=== PATIENT | female | born 1945 | race African-American/Black ===

== ENCOUNTER 2017-06-06 05:24 | Inpatient (IN) | payer OTHER ==
[~2017-06-06] VITALS: Ht 157.5 cm; Wt 70.8 kg
[~2017-06-06 05:24] MED LIST: ACETAMINOPHEN500 M4 PO; AMLODIPINE BESY10 M1 PO; ASPIRIN EC81 M1 PO; ATENOLOL50 M1 PO; CENTRUM SILVER1 EAC3 PO; GLUCOTROL5 M1 PO; LIPITOR10 M1 PO; LISINOPRIL5 M1 PO; METFORMIN HCL500 M3 PO; OMEPRAZOLE40 M1 PO; TRAMADOL HCL50 M1 PO
--- NOTE | 2017-06-06 11:50 | Admission Core Measures ---
Acute Coronary Syndrome (CM) ACS Core Measures Acute Coronary Syndrome Diagnosis No Congestive Heart Failure (NEW) CHF Core Measures Congestive Heart Failure Diagnosis No Cerebrovascular Accident (NEW) CVA Core Measures CVA/TIA Diagnosis No Venous Thromboembolism VTE Core Renetta (View Protocol) VTE Risk Factors Surgery No Mechanical VTE Prophylaxis d/t N/A MechProphylax Ordered No VTE Pharm Prophylaxis d/t NA PharmProphylax ordered Problem List As ranked by this Provider includes Assessment & Plan 1. Unilateral primary osteoarthritis, right knee HOME MEDS Home Med List Acetaminophen 500 MG TABLET 2 TAB PO PRN PAIN (Reported) Amlodipine Besylate 10 MG TABLET 1 TAB PO DAILY BP (Reported) Aspirin (Ecotrin*) 81 MG TABLET.DR 1 TAB PO DAILY HEART/BLOOD (Reported) Atenolol 50 MG TABLET 1 TAB PO DAILY BP (Reported) Atorvastatin Calcium (Lipitor) 10 MG TABLET 1 TAB PO DAILY CHOLESTEROL ( Reported) Glipizide (Glucotrol) 5 MG TABLET 1 TAB PO DAILY DM (Reported) Lisinopril 5 MG TABLET 1 TAB PO DAILY BP (Reported) Metformin HCl 500 MG TABLET 1 TAB PO BID DM (Reported) Multivit-Min/FA/Lycopen/Lutein (Centrum Silver Tablet) 0.4 MG-300 MCG-250 MCG TABLET 1 TAB PO DAILY SUPPLEMENT (Reported) Omeprazole 40 MG CAPSULE.DR 1 CAP PO PRN GI (Reported) Tramadol HCl 50 MG TABLET 1-2 TAB PO Q4-6H PRN PAIN (Reported)
--- NOTE | 2017-06-06 11:51 | Surgical Discharge Summary ---
Visit Information Visit Dates Admission Date: 06/06/17 Discharge Date: 06/10/17 History of Present Illness Chief Complaint: Right knee joint pain Surgical History Pertinent Surgical History: knee replacement (R 06/06/17) Review of Systems: Refer to H&P Hospital Course Course Attending Physician: Munir Hwang MD Primary Care Physician: Coty MEZA,[place] Hospital Course: Patient underwent a R TKR by Dr Hwang and was brought to the PACU in stable condition. Postoperatively, she was evaluated and worked with PT and was WBAT. She voided spontaneously and her pain control was transitioned from iv to oral medicaiton. Her discharge was delayed due to constipation. Multiple medications were used to achieve a bm prior to discharge to short term rehab. Complications: None Allergies: Coded Allergies: erythromycin base (BLACKED OUT PER PT 06/01/17) sitagliptin (From [facility]) (renal failure 06/05/17) Disposition Summary Disposition Principal Diagnosis: Bilateral knee primary DJD Additional Diagnosis: same as above, s/p Surgery Date: 06/06/17 Name of Procedure: 1. Right total knee replacement 2. Left knee cortisone injection Discharge Disposition: SNF Discharge Instructions General Discharge Information Code Status: Full Code Patient's Diet: diabetic diet, cc3 Patient's Activity: weight bearing as tolerated. rolling walker assistance. continue PT. Follow-Up Instructions/Appts: follow up with in 6 weeks staple removal around post-op day#14 dry guaze dressing changed daily, right knee Medications at Discharge Discharge Medications: Stop taking the following medications: Tramadol HCl (Tramadol HCl) 50 MG TABLET ORAL Q4-6H as needed for PAIN Aspirin (Ecotrin*) 81 MG TABLET.DR LIAN CANCHOLA Continue taking these medications: Lisinopril (Lisinopril) 5 MG TABLET 1 Tablet ORAL DAILY Atenolol (Atenolol) 50 MG TABLET 1 Tablet ORAL DAILY Glipizide (Glucotrol) 5 MG TABLET 1 Tablet ORAL DAILY Atorvastatin Calcium (Lipitor) 10 MG TABLET 1 Tablet ORAL DAILY Amlodipine Besylate (Amlodipine Besylate) 10 MG TABLET 1 Tablet ORAL DAILY Metformin HCl (Metformin HCl) 500 MG TABLET 1 Tablet ORAL TWICE DAILY Multivit-Min/FA/Lycopen/Lutein (Centrum Silver Tablet) 0.4 MG-300 MCG-250 MCG TABLET 1 Tablet ORAL DAILY Acetaminophen (Acetaminophen) 500 MG TABLET 2 Tablet ORAL as needed for PAIN Omeprazole (Omeprazole) 40 MG CAPSULE.DR 1 Capsule ORAL as needed for GI Start taking the following new medications: Aspirin (Aspirin*) 325 MG TABLET 1 Tablet ORAL TWICE DAILY Qty = 60 No Refills Docusate Sodium (Colace) 100 MG CAPSULE 1 Capsule ORAL TWICE DAILY Qty = 14 No Refills Hydromorphone HCl (Dilaudid) 2 MG TABLET 1-2 Tablet ORAL EVERY 4-6 HOURS as needed for PAIN Qty = 36 No Refills Polyethylene Glycol 3350 (Miralax) 17 GRAM POWD.PACK 1 Packet ORAL DAILY Qty = 7 No Refills Instructions: dissolve in water Copies To: Coty MEZA,George
--- NOTE | 2017-06-06 12:22 | Patient Discharge Instructions ---
Discharge Instructions General Discharge Information You were seen/treated for: Bilateral knee primary DJD You had these procedures: Surgery Date: 06/06/17 Name of Procedure: 1. Right total knee replacement 2. Left knee cortisone injection Watch for these problems: Temp >101.3 F, increased redness or drainage of wounds Call Surgeon to remove: [place] Other wound care: Keep incisions clean and dry. May shower no bathing or soaking Special Instructions: staple removal around post-op day#14 Diet Continue normal diet: Yes Recommended Diet: Diabetic Activity Activity Self Limited: Yes Activity Limited to: Weight bear as tolerated Acute Coronary Syndrome Inclusion Criteria At DC or during hospital stay patient has or had the following: ACS DIAGNOSIS No Discharge Core Measures Meds if any: Prescribed or Continued at Discharge Meds if any: NOT Prescribed or Continued at Discharge Congestive Heart Failure Inclusion Criteria At DC or during hospital stay patient has or had the following: CHF DIAGNOSIS No Discharge Core Measures Meds if any: Prescribed or Continued at Discharge Meds if any: NOT Prescribed or Continued at Discharge Cerebrovascular accident Inclusion Criteria At DC or during hospital stay patient has or had the following: CVA/TIA Diagnosis No Discharge Core Measures Meds if any: Prescribed or Continued at Discharge Meds if any: NOT Prescribed or Continued at Discharge Venous thromboembolism Inclusion Criteria VTE Diagnosis No VTE Type NONE VTE Confirmed by (Test) NONE Discharge Core Measures - Per Current guidelines, there needs to be overlap - treatment for the first 5 days of Warfarin therapy. - If discharged on Warfarin prior to 5 days of - overlap therapy, the patient will need to be - assessed for post discharge needs including - *Post discharge parental anticoagulation - *Warfarin and/or parental anticoagulation education - *Follow up date to check INR post discharge At least 5 days overlap therapy as Inpatient No Meds if any: Prescribed or Continued at Discharge Note: Overlap Therapy is Warfarin and Anticoagulant Meds if any: NOT Prescribed or Continued at Discharge
[2017-06-06] MEDS ORDERED: COLACE100 M1 PO (12:48)
[2017-06-06] MEDS ORDERED: ASPIRIN325 M2 PO (12:48)
[2017-06-06] MEDS ORDERED: MIRALAX17 G1 PO (12:48)
[2017-06-06] MEDS ORDERED: DILAUDID2 M1 PO (12:48)
--- NOTE | 2017-06-06 13:12 | Operative Report ---
Operative/Inv Procedure Report Surgery Date: 06/06/17 Name of Procedure: 1. Right total knee replacement 2. Left knee cortisone injection Pre-Operative Diagnosis: Bilateral knee primary DJD Post-Operative Diagnosis: Same Estimated Blood Loss: 50ml to 100ml Surgeon/Grief Counselor: Eri MEZA,Munir Ivory Anesthesia: block Operative/Procedure Note Note: Description of Procedure: The patient was taken to the operating room and positively identified. After induction of spinal anesthesia and administration of appropriate pre-operative antibiotics, the patient was positioned supine on the operating room table and all bony prominences were well padded. The left knee was prepped sterilely and injected with a mixture of 2 mL of Depo- Medrol and 6 mL of half percent Marcaine. A Band-Aid was placed over the check site. Attention was then turned to the right lower extremity. A well-padded pneumatic tourniquet was placed on the right upper thigh. After performing a surgical timeout, the right lower extremity was prepped and draped in the usual sterile fashion. After exsanguination with Esmarch the tourniquet was inflated to 250mm of mercury. A standard medial parapatellar approach was made to the knee. This was carried down through skin and subcutaneous tissue to the level of the fascia. Meticulous hemostasis was maintained with Bovie electrocautery. The extensor mechanism and patellar retinaculum were opened sharply and the patella was everted. The infrapatellar fat was resected in order to improve exposure. Osteophytes were trimmed from the patella and femoral condyles and the patella was re-everted and tucked laterally. A medial release was performed and the cruciate ligaments were resected. The tibia was then subluxed anteriorly. Utilizing the appropriate extra-medullary guide, the proximal tibia was trimmed perpendicular to the long axis of the tibial shaft. Attention was then turned to the femur. After opening the medullary canal, the distal femoral cut was made in 6 degrees of valgus utilizing the appropriate intra-medullary guide. The extension gap was checked and found to be appropriate. The femur was then sized and the remainder of the femoral cuts were made with a size 3 4-in-1 femoral cutting guide. The flexion gap was checked and found to be symmetric and appropriate. The knee was then trialed with a size 3 femoral component, a size 3 tibial component and a size 11 mm polyethylene insert. The patella was trimmed to accept an A 32 patella. This yielded excellent range of motion, stability and patellar tracking. All trial components were removed and the knee was copiously irrigated with sterile saline. All components were cemented into place with Chely Simplex cement. All the components were of the [employer] (NIH) Triathlon knee system of the above stated sizes. The knee was again irrigated after cementation. The extensor mechanism and patellar retinaculum were repaired using interrupted #1 vicryl suture. The skin was re-approximated with 2-0 vicryl and closed with antelmo. A sterile dressing was applied, the tourniquet was deflated, the patient was awakened and taken to the recovery room in satisfactory condition.
[2017-06-06 18:30] VITALS: BP 156/80
--- NOTE | 2017-06-06 21:20 | PN- Orthopedic ---
Subjective Subjective: poc - s/p right tka awake alert comfortable denies cp, sob, no n+v with diet Objective Vital Signs and I&Os Vital Signs Date Time Temp Pulse Resp B/P B/P Pulse O2 O2 Flow FiO2 Mean Ox Delivery Rate 06/06 1830 98.7 86 20 156/80 97 Room Air Intake & Output 06/06 1600 06/06 0800 06/06 0000 06/05 1600 06/05 0800 06/05 0000 Intake Total Output Total Balance Patient 156 lb Weight Physical Exam: cv: rrr lungs: clear abd: soft, +bs ext: drsg dry distal cms intact onq in place Assessment/Plan Assessment/Plan ortho stable plan oob with pt in am asa for dvt prophylaxis titrate pain meds dc ivf when irma po wants snf upon d/c Core Measures Venous Thromboembolism VTE Risk Factors Surgery No Mechanical VTE Prophylaxis d/t N/A MechProphylax Ordered No VTE Pharm Prophylaxis d/t NA PharmProphylax ordered
[2017-06-06 22:12] VITALS: BP 156/64
[2017-06-07 02:00] VITALS: BP 130/70
[2017-06-07 06:11] VITALS: BP 140/70
[2017-06-07 08:31] LABS: ABSOLUTE BASOPHIL COUNT 0 /CUMM (0.0-0.2); ABSOLUTE EOSINOPHIL COUNT 0 /CUMM (0.0-0.7); ABSOLUTE GRANULOCYTE CT 6.5 /CUMM (1.4-6.5); ABSOLUTE LYMPH COUNT 1.5 /CUMM (1.2-3.4); ABSOLUTE MONOCYTE COUNT 0.8 /CUMM (0.10-0.60); BASOPHIL % 0.2 % (0.0-2.0); EOSINOPHIL % 0.1 % (0-5); GRANULOCYTE % 73.6 % (42.2-75.2); HEMATOCRIT 26.3 % (37-47); MEAN CORPUSCULAR HGB CONC 32.5 G/DL (33.0-37.0); MEAN CORPUSCULAR VOLUME 73.9 FL (81.0-99.0); MEAN PLATELET VOLUME 7.1 FL (7.4-10.4); PLATELET COUNT 484 /CUMM (130-400); RBC DISTRIBUTION WIDTH 17.6 % (11.5-14.5); RED BLOOD CELL CT 3.56 /CUMM (4.20-5.40); WHITE BLOOD CELL COUNT 8.8 /CUMM (4.8-10.8)
--- NOTE | 2017-06-07 10:14 | PN- Orthopedic ---
Subjective Subjective: Patient main complaint this morning is itching all over since she started taking Tramadol for her knee pain 2 weeks ago. She reports pain down her right lateral thigh to her knee which is well controlled. She ambulated with PT today and is tolerating a diet. Denies fever, chills, chest pain, sob, lightheadness or dizziness, numbness or tingling. Offers no other complaints. Objective Vital Signs and I&Os Vital Signs Date Time Temp Pulse Resp B/P B/P Pulse O2 O2 Flow FiO2 Mean Ox Delivery Rate 06/07 0849 90 140/70 06/07 0849 90 140/70 06/07 0849 90 140/70 06/07 0611 99.0 90 20 140/70 96 Room Air 06/07 0200 98.9 89 20 130/70 95 Room Air 06/06 2212 98.6 86 20 156/64 95 Room Air 06/06 1830 98.7 86 20 156/80 97 Room Air Intake & Output 06/07 1600 06/07 0800 06/07 0000 06/06 1600 06/06 0800 06/06 0000 Intake Total 1080 240 Output Total 1350 950 Balance -270 -710 Intake, IV 600 Intake, Oral 480 240 Output, Urine 1350 950 Patient 156 lb Weight Weight Reported by Patient Measurement Method Physical Exam: Gen - resting uncomfortably in a chair due to puritis accompained by her family in NAD Cardiac - S1S2 noted, RRR Lungs - CTAB Ext - RLE dressing with angeles/onQ/ice in place, dressing C/D/I, moves all extremities alps/teds in place Current Medications: Current Medications Sig/Sara Start time Last Medication Dose Route Stop Time Status Admin Acetaminophen 650 MG Q4P PRN 06/06 1845 AC PO Acetaminophen 0 .STK-MED ONE 06/06 1132 DC PO Acetaminophen 975 MG ONCE 06/06 0000 DC PO 06/06 2359 Amlodipine Besylate 10 MG DAILY 06/07 1000 AC 06/07 PO 0849 Aspirin 325 MG BID 06/06 2200 AC 06/07 PO 0848 Atenolol 50 MG DAILY 06/07 1000 AC 06/07 PO 0849 Atorvastatin Calcium 10 MG 1700 06/06 1700 AC 06/06 PO 2036 Cefazolin Sodium 2 GM Q8H 06/07 0400 DC 06/07 N/A 1 UNIT IV 06/07 0429 0409 Cefazolin Sodium 2 GM Q8H 06/06 2130 DC N/A 1 UNIT IV 06/06 2159 Cefazolin Sodium 2 GM IQ8 06/06 1600 DC 06/06 N/A 1 UNIT IV 06/07 0029 2036 Cefazolin Sodium 2,000 MG ONCE 06/06 0000 DC IV 06/06 2359 Dextrose/Sodium 1,000 ML .[id number] 06/06 1845 DC 06/07 Chloride IV 0409 Docusate Sodium 100 MG BID 06/06 2200 AC 06/07 PO 0848 Hydromorphone HCl 2 MG Q4P PRN 06/06 1845 AC 06/07 PO 0848 Hydromorphone HCl 4 MG Q4P PRN 06/06 1845 AC PO Hydromorphone HCl 2 MG .STK-MED ONE 06/06 1744 DC IM 06/06 1745 Insulin Human Regular 0 TIDAC/HS 06/06 1700 AC 06/07 SC 0816 Ketorolac 15 MG Q6P PRN 06/06 1245 AC 06/07 Tromethamine IV 0530 Lisinopril 5 MG DAILY 06/07 1000 AC 06/07 PO 0849 Morphine Sulfate 2 MG Q2P PRN 06/06 1845 AC IV Morphine Sulfate 10 MG .STK-MED ONE 06/06 1057 DC IV 06/06 1058 Multivitamins 1 TAB DAILY 06/07 1000 AC 06/07 PO 0849 Omeprazole 40 MG DAILY AC 06/07 0700 AC 06/07 PO 0530 Ondansetron HCl 4 MG Q6P PRN 06/06 1845 AC 06/07 IV 0848 Oxycodone HCl 0 .STK-MED ONE 06/06 1132 DC PO Oxycodone HCl 10 MG ONCE 06/06 0000 DC PO 06/06 2359 Polyethylene Glycol 17 GM DAILY 06/07 1000 AC 06/07 PO 0848 Promethazine HCl 12.5 MG Q6P PRN 06/06 1845 AC IV 06/13 1244 Ropivacaine 500 ML ONCE ONE 06/06 1430 AC ON-Q Ball 1 BAG INJ 06/08 1629 Results Last 48 Hours of Labs: Laboratory Tests 06/07 0744 Chemistry Sodium (137 - 145 mmol/L) 139 Potassium (3.5 - 5.1 mmol/L) 4.1 Chloride (98 - 107 mmol/L) 102 Carbon Dioxide (22 - 30 mmol/L) 23 Anion Gap (5 - 16) 13 BUN (7 - 17 mg/dL) 13 Creatinine (0.5 - 1.0 mg/dL) 0.6 Estimated GFR (>60 ml/min) > 60 BUN/Creatinine Ratio (7 - 25 %) 21.7 Hematology CBC w Diff NO MAN DIFF REQ WBC (4.8 - 10.8 /CUMM) 8.8 RBC (4.20 - 5.40 /CUMM) 3.56 L Hgb (12.0 - 16.0 G/DL) 8.6 L Hct (37 - 47 %) 26.3 L MCV (81.0 - 99.0 FL) 73.9 L MCH (27.0 - 31.0 PG) 24.0 L MCHC (33.0 - 37.0 G/DL) 32.5 L RDW (11.5 - 14.5 %) 17.6 H Plt Count (130 - 400 /CUMM) 484 H MPV (7.4 - 10.4 FL) 7.1 L Gran % (42.2 - 75.2 %) 73.6 Lymphocytes % (20.5 - 51.1 %) 17.1 L Monocytes % (1.7 - 9.3 %) 9.0 Eosinophils % (0 - 5 %) 0.1 Basophils % (0.0 - 2.0 %) 0.2 Absolute Granulocytes (1.4 - 6.5 /CUMM) 6.5 Absolute Lymphocytes (1.2 - 3.4 /CUMM) 1.5 Absolute Monocytes (0.10 - 0.60 /CUMM) 0.8 H Absolute Eosinophils (0.0 - 0.7 /CUMM) 0 Absolute Basophils (0.0 - 0.2 /CUMM) 0 Assessment/Plan Assessment/Plan 71 F POD 1 s/p R TKR secondary to DJD with generalized pruritis secondary to tramadol and hyperglycemia with a glucose of 234 today and 316 last night. OOB with PT, WBAT Diabetic diet, dc IVF Benedryl for pruritis Postop abx completed Pain regimen prn, onQ, ice prn Home meds on board Fingersticks tid ac/hs and insulin SS on board GI ppx on board DVT ppx - asa bid, alps, teds Bowel regimen on board Encourage IS Dressing change POD2 Monitor H&H, repeat CBC tomorrow Anticipate d/c to STR in 2 days Core Measures Venous Thromboembolism VTE Risk Factors Surgery No Mechanical VTE Prophylaxis d/t N/A MechProphylax Ordered No VTE Pharm Prophylaxis d/t NA PharmProphylax ordered
[2017-06-07 10:35] VITALS: BP 132/62
[2017-06-07 14:32] VITALS: BP 130/60
[2017-06-07 18:00] VITALS: BP 142/76
[2017-06-07 22:01] VITALS: BP 140/70
[2017-06-08 06:23] VITALS: BP 150/72
--- NOTE | 2017-06-08 07:39 | PN- Orthopedic ---
Subjective Subjective: co pain r knee ,no nv, no cp, no fever, no sob. Objective Vital Signs and I&Os Vital Signs Date Time Temp Pulse Resp B/P B/P Pulse O2 O2 Flow FiO2 Mean Ox Delivery Rate 06/08 0623 99.1 90 20 150/72 96 Room Air 06/07 2201 99.2 91 20 140/70 95 Room Air 06/07 1800 100.1 100 20 142/76 95 06/07 1432 98.0 80 20 130/60 97 Room Air 06/07 1400 Room Air 06/07 1211 Room Air 06/07 1035 99.1 95 18 132/62 98 Room Air 06/07 0849 90 140/70 06/07 0849 90 140/70 06/07 0849 90 140/70 Intake & Output 06/08 0800 06/08 0000 06/07 1600 06/07 0800 06/07 0000 06/06 1600 Intake Total 477 986 9722 240 Output Total 300 1350 950 Balance 480 480 -270 -710 Intake, IV 300 600 Intake, Oral 480 480 480 240 Number 0 Bowel Movements Output, Urine 300 1350 950 Patient 156 lb Weight Weight Reported by Patient Measurement Method Physical Exam: Well-developed well-nourished no apparent distress. HEENT: Atraumatic, extraocular motion intact Neck: Supple, no lymphadenopathy Respiratory: No respiratory distress Extremities: No edema RIGHT lower extremity dressing in place, Incision has a tiny amount of bloody drainage at midline, otherwise intact No signs of infection. Mild joint effusion Range of motion is 0-30. Compression wrap in place. ALPS in place Neurovascularly intact distally Bilateral calves are supple, nontender. Neuro: Alert and oriented x3 Psych: Mood affect normal, normal memory normal judgment. Skin: Warm and dry, no rash on exposed skin Results Last 48 Hours of Labs: Laboratory Tests 06/07 0744 Chemistry Sodium (137 - 145 mmol/L) 139 Potassium (3.5 - 5.1 mmol/L) 4.1 Chloride (98 - 107 mmol/L) 102 Carbon Dioxide (22 - 30 mmol/L) 23 Anion Gap (5 - 16) 13 BUN (7 - 17 mg/dL) 13 Creatinine (0.5 - 1.0 mg/dL) 0.6 Estimated GFR (>60 ml/min) > 60 BUN/Creatinine Ratio (7 - 25 %) 21.7 Hematology CBC w Diff NO MAN DIFF REQ WBC (4.8 - 10.8 /CUMM) 8.8 RBC (4.20 - 5.40 /CUMM) 3.56 L Hgb (12.0 - 16.0 G/DL) 8.6 L Hct (37 - 47 %) 26.3 L MCV (81.0 - 99.0 FL) 73.9 L MCH (27.0 - 31.0 PG) 24.0 L MCHC (33.0 - 37.0 G/DL) 32.5 L RDW (11.5 - 14.5 %) 17.6 H Plt Count (130 - 400 /CUMM) 484 H MPV (7.4 - 10.4 FL) 7.1 L Gran % (42.2 - 75.2 %) 73.6 Lymphocytes % (20.5 - 51.1 %) 17.1 L Monocytes % (1.7 - 9.3 %) 9.0 Eosinophils % (0 - 5 %) 0.1 Basophils % (0.0 - 2.0 %) 0.2 Absolute Granulocytes (1.4 - 6.5 /CUMM) 6.5 Absolute Lymphocytes (1.2 - 3.4 /CUMM) 1.5 Absolute Monocytes (0.10 - 0.60 /CUMM) 0.8 H Absolute Eosinophils (0.0 - 0.7 /CUMM) 0 Absolute Basophils (0.0 - 0.2 /CUMM) 0 Assessment/Plan Assessment/Plan Postop day #2 status post right total knee arthroplasty Pain medication as needed. Out of bed Physical therapy, weightbearing as tolerated Regular diet Aspirin for DVT prophylaxis ALPS for DVT prophylaxis Regular home meds Dressing change daily, done today, angeles applied str tomorrow Core Measures Venous Thromboembolism VTE Risk Factors Surgery No Mechanical VTE Prophylaxis d/t N/A MechProphylax Ordered No VTE Pharm Prophylaxis d/t NA PharmProphylax ordered
[2017-06-08 09:23] LABS: ABSOLUTE BASOPHIL COUNT 0 /CUMM (0.0-0.2); ABSOLUTE EOSINOPHIL COUNT 0 /CUMM (0.0-0.7); ABSOLUTE GRANULOCYTE CT 5.8 /CUMM (1.4-6.5); ABSOLUTE LYMPH COUNT 2.1 /CUMM (1.2-3.4); ABSOLUTE MONOCYTE COUNT 0.7 /CUMM (0.10-0.60); BASOPHIL % 0.5 % (0.0-2.0); EOSINOPHIL % 0.1 % (0-5); GRANULOCYTE % 67.4 % (42.2-75.2); MEAN CORPUSCULAR HGB 23.5 PG (27.0-31.0); MEAN CORPUSCULAR VOLUME 73.6 FL (81.0-99.0); MEAN PLATELET VOLUME 7.4 FL (7.4-10.4); PLATELET COUNT 494 /CUMM (130-400); RBC DISTRIBUTION WIDTH 17.9 % (11.5-14.5); RED BLOOD CELL CT 3.67 /CUMM (4.20-5.40); WHITE BLOOD CELL COUNT 8.6 /CUMM (4.8-10.8)
[2017-06-08 14:03] VITALS: BP 140/60
[2017-06-08 16:28] VITALS: BP 112/70
[2017-06-08 21:57] VITALS: BP 140/60
[2017-06-09 02:05] VITALS: BP 134/68
[2017-06-09 06:00] VITALS: BP 128/70
[2017-06-09 10:54] VITALS: BP 132/58
--- NOTE | 2017-06-09 12:38 | PN- Orthopedic ---
Subjective Subjective: Patient has no major complaints. Her pain is reasonably controlled, but she is still requiring pain medication every 4-5 hours. She is progressing well with physical therapy and is awaiting discharge to short-term rehabilitation. She is tolerating a diabetic diet, but has not had a bowel movement as of yet. Otherwise voiding well. Objective Vital Signs and I&Os Vital Signs Date Time Temp Pulse Resp B/P B/P Pulse O2 O2 Flow FiO2 Mean Ox Delivery Rate 06/09 1054 97.8 73 20 132/58 98 06/09 0826 91 128/70 06/09 0826 91 128/70 06/09 0826 91 128/70 06/09 0600 98.7 91 18 128/70 97 Room Air 06/09 0205 98.1 72 18 134/68 93 Room Air 06/08 2157 98.8 85 20 140/60 96 06/08 1403 98.7 92 18 140/60 96 Room Air Intake & Output 06/09 1600 06/09 0800 06/09 0000 06/08 1600 06/08 0800 06/08 0000 Intake Total 200 200 240 600 480 Output Total Balance 200 200 240 600 480 Intake, Oral 200 200 240 600 480 Physical Exam: Gen.: Patient is awake and alert. No acute distress. She is in good spirits. Cardiac: regular Pulmonary: Lungs are clear bilaterally. Extremities: The right knee incision is clean, dry, and intact and the dressing was replaced. Moderate knee and distal lower extremity swelling is noted, within expected limits. Strength is 4 out of 5. Assessment/Plan Assessment/Plan Patient is a 71-year-old female who is now postoperative day #3 status post right total knee arthroplasty. Plan: -Aspirin 325 twice a day for DVT prophylaxis. -Patient may weight-bear as tolerated with rolling walker and progress per PT recommendations. -Pain control with oral Dilaudid as needed. -Continue bowel regimen with Colace twice a day and MiraLAX once daily. Milk of magnesia was given 1 today. Dulcolax suppository will be used if needed. -Prilosec for GI prophylaxis. -Patient is cleared for discharge from a surgical standpoint and can go to short -term rehabilitation after she has a bowel movement. Core Measures Venous Thromboembolism VTE Risk Factors Surgery No Mechanical VTE Prophylaxis d/t N/A MechProphylax Ordered No VTE Pharm Prophylaxis d/t NA PharmProphylax ordered
[2017-06-09 14:28] VITALS: BP 154/72
[2017-06-09 18:30] VITALS: BP 128/60
[2017-06-09 22:47] VITALS: BP 150/66
[2017-06-10 06:20] VITALS: BP 120/68
[2017-06-10 08:00] VITALS: BP 120/68
--- NOTE | 2017-06-10 08:35 | PN- Orthopedic ---
Subjective Subjective: No bm yesterday after dulcolax, milk of mag, and miralax yesterday. She is passing flatus. Anticipates trying a fleet enema this morning. Otherwise pain improves with oral dilaudid. Tolerating diet. No nausea. Out of bed without dizziness. No shortness of breath. No chest pains. Objective Vital Signs and I&Os Vital Signs Date Time Temp Pulse Resp B/P B/P Pulse O2 O2 Flow FiO2 Mean Ox Delivery Rate 06/10 0620 98.0 77 18 120/68 96 Room Air 06/09 2247 98.3 81 20 150/66 96 Room Air 06/09 1830 98.8 85 20 128/60 95 Room Air 06/09 1428 98.3 88 20 154/72 96 06/09 1054 97.8 73 20 132/58 98 Intake & Output 06/10 1600 06/10 0800 06/10 0000 06/09 1600 06/09 0800 06/09 0000 Intake Total 100 100 480 200 200 Output Total 200 Balance 100 100 280 200 200 Intake, Oral 100 100 480 200 200 Number 0 Bowel Movements Output, Urine 200 Physical Exam: General - alert & oriented. comfortable. no acute distress. Lungs - clear bilaterally. no w/r/r. Cardiac - s1s2. reg. Abdomen - soft. nontender. Extremities - warm bilaterally. right knee incision well approximated with antelmo. no erythema or exudates appreciated. replaced new ice pack / placed over knee. calves soft and nontender b/l. nvi. Current Medications: Current Medications Sig/Sara Start time Last Medication Dose Route Stop Time Status Admin Acetaminophen 650 MG Q4P PRN 06/06 1845 AC PO Amlodipine Besylate 10 MG DAILY 06/07 1000 06/09 PO 0826 Aspirin 325 MG BID 06/06 PO 2149 Atenolol 50 MG DAILY 06/07 1000 06/09 PO 0826 Atorvastatin Calcium 10 MG 1700 06/06 1700 06/09 PO 1659 Bisacodyl 10 MG ONCE PRN 06/09 1245 06/09 WI 1513 Diphenhydramine HCl 25 MG Q4-PRN PRN 06/07 1015 06/07 IV 1126 Docusate Sodium 100 MG BID 06/060 06/09 PO 214 Hydromorphone HCl 2 MG Q4P PRN 06/06 1845 AC 06/08 PO 1022 Hydromorphone HCl 4 MG Q4P PRN 06/06 1845 AC 06/10 PO 0431 Insulin Human Regular 3 UNITS .STK-MED ONE 06/09 2146 DC IV 06/09 2147 Insulin Human Regular 2 UNITS .STK-MED ONE 06/09 1658 DC IV 06/09 1659 Insulin Human Regular 10 UNITS .STK-MED ONE 06/09 1134 DC IV 06/09 1135 Insulin Human Regular 0 TIDAC/HS 06/06 1700 AC 06/09 SC 2149 Ketorolac 15 MG Q6P PRN 06/06 1245 AC 06/07 Tromethamine IV 1126 Lisinopril 5 MG DAILY 06/07 1000 AC 06/09 PO 0826 Magnesium Hydroxide 30 ML ONE ONE 06/09 1030 DC 06/09 PO 06/09 1031 1136 Morphine Sulfate 2 MG Q2P PRN 06/06 1845 AC 06/09 IV 0613 Multivitamins 1 TAB DAILY 06/07 1000 AC 06/09 PO 0824 Omeprazole 40 MG DAILY AC 06/07 0700 AC 06/10 PO 0558 Ondansetron HCl 4 MG Q6P PRN 06/06 1845 AC 06/07 IV 0848 Polyethylene Glycol 17 GM DAILY 06/07 1000 AC 06/09 PO 0823 Promethazine HCl 12.5 MG Q6P PRN 06/06 1845 AC IV 06/13 1244 Sodium Phosphate 1 UNIT ONCE PRN 06/09 1745 DC WI 06/09 2300 Results Last 48 Hours of Labs: Laboratory Tests 06/08 0840 Hematology CBC w Diff NO MAN DIFF REQ WBC (4.8 - 10.8 /CUMM) 8.6 RBC (4.20 - 5.40 /CUMM) 3.67 L Hgb (12.0 - 16.0 G/DL) 8.6 L Hct (37 - 47 %) 27.0 L MCV (81.0 - 99.0 FL) 73.6 L MCH (27.0 - 31.0 PG) 23.5 L MCHC (33.0 - 37.0 G/DL) 32.0 L RDW (11.5 - 14.5 %) 17.9 H Plt Count (130 - 400 /CUMM) 494 H MPV (7.4 - 10.4 FL) 7.4 Gran % (42.2 - 75.2 %) 67.4 Lymphocytes % (20.5 - 51.1 %) 24.0 Monocytes % (1.7 - 9.3 %) 8.0 Eosinophils % (0 - 5 %) 0.1 Basophils % (0.0 - 2.0 %) 0.5 Absolute Granulocytes (1.4 - 6.5 /CUMM) 5.8 Absolute Lymphocytes (1.2 - 3.4 /CUMM) 2.1 Absolute Monocytes (0.10 - 0.60 /CUMM) 0.7 H Absolute Eosinophils (0.0 - 0.7 /CUMM) 0 Absolute Basophils (0.0 - 0.2 /CUMM) 0 Assessment/Plan Assessment/Plan This 71-year-old female with hx htn, hld, dm, is now POD#4 s/p right total knee arthroplasty, awaiting bm before she is accepted [facility] tolerating diet trying fleet enema this morning contined colace / miralax pain controlled with oral dilaudid dressing changed. ice pack replaced. asa 325 mg bid - dvt ppx continue PT. oob/ambulation d/c to str today after bm will d/w Core Measures Venous Thromboembolism VTE Risk Factors Surgery No Mechanical VTE Prophylaxis d/t N/A MechProphylax Ordered No VTE Pharm Prophylaxis d/t NA PharmProphylax ordered
[2017-06-10 12:20] VITALS: BP 120/70
[2017-06-10 13:19] VITALS: BP 120/70
== END 2017-06-10 13:50 | DRG 470 ==
LOC: SDA 05:24 → ENRESERV 16:24 → ENTRNSPT 17:34 → 2NA 18:08 → CMPTRNSPT 18:14 → 2NA 06-10 07:29 → ENPENDDIS 06-10 08:45 → ENTRNSPT 06-10 13:28 → EDTRNSPTSTS 06-10 13:35 → EDTRNSPT 06-10 13:35 → 2NA 06-10 13:50 → CMPTRNSPT 06-10 14:02
PROVIDERS: Physician Assistant Surgical
PROC: 3E0U3BZ Introduction of Anesthetic Agent into Joints, Percutaneous Approach (ICD-10-PCS; principal; 2017-06-06)
PROC: 3E0U33Z Introduction of Anti-inflammatory into Joints, Percutaneous Approach (ICD-10-PCS; principal; 2017-06-06)
PROC: 0SRC0J9 Replacement of Right Knee Joint with Synthetic Substitute, Cemented, Open Approach (ICD-10-PCS; principal; 2017-06-06)
PROC: 3E0T3BZ Introduction of Anesthetic Agent into Peripheral Nerves and Plexi, Percutaneous Approach (ICD-10-PCS; 2017-06-06)
DX: M17.0 Bilateral primary osteoarthritis of knee (principal); E11.65 Type 2 diabetes mellitus with hyperglycemia; K21.9 Gastro-esophageal reflux disease without esophagitis; K59.00 Constipation, unspecified; Z79.84 Long term (current) use of oral hypoglycemic drugs; L29.8 Other pruritus; T40.4X5A Adverse effect of other synthetic narcotics, initial encounter; I10 Essential (primary) hypertension
CPT/HCPCS: 2NAP; 36415; 82436; 88305; 97110-GO; 97116-GO; 97161-GP; 97530-GO; C1713; J0690; J1030; J1200; J1815; J2405; J2550; J2795; J3490; J7042